=== PATIENT | male | born 1940 | race Asian ===

== ENCOUNTER → 2016-07-30 | Outpatient (CLI) | payer MEDICARE ==
[~2016-07-30] MED LIST: HYDR-3138 PO; LISI-167 PO; LISI-170 PO; METO25TA35 PO; METO25TA4 PO; PANT40TA5 PO; SIMV40TA3 PO; TERA5CAP3 PO
== END | disposition home or self-care (01) ==
LOC: ROC 15:08
PROVIDERS: ATTEND Radiology Radiation Oncology
DX: Z08 Encounter for follow-up examination after completed treatment for malignant neoplasm (principal); C34.11 Malignant neoplasm of upper lobe, right bronchus or lung; M25.562 Pain in left knee
CPT/HCPCS: 99213; G0463